=== PATIENT | male | born 1995 | race Caucasian/White ===

== ENCOUNTER 2017-12-03 21:45 | Emergency (ER) | payer BC ==
[~2017-12-03] VITALS: Ht 172.7 cm; Wt 78.2 kg
[~2017-12-03 21:45] MED LIST: AMOXICILLIN500 MG PO; AUGMENTIN875TAB PO; BENADRYL1 CRE EX; CIPROFLOXACN500 MG PO; DAYTIME COLD; FLU; HYDROXYZ HCL25 MG PO; MAALOX/BEN PO; NAFTIN2 % EX; NO; STROMECTOL3 MG OR; [UNRECOGNIZED DRUG - OTHER]; [UNRECOGNIZED DRUG - OTHER]
[2017-12-03 22:40] VITALS: BP 133/78
== END 2017-12-03 22:40 | disposition home or self-care (01) | DRG 605 ==
LOC: ED 21:45
PROC: 0HQDXZZ Repair Right Lower Arm Skin, External Approach (ICD-10-PCS; principal; 2017-12-03)
DX: S61.511A Laceration without foreign body of right wrist, initial encounter (principal); W54.8XXA Other contact with dog, initial encounter; Y93.89 Activity, other specified; Y92.009 Unspecified place in unspecified non-institutional (private) residence as the place of occurrence of the external cause

== ENCOUNTER 2019-02-02 19:37 | Emergency (ER) | payer BC ==
[~2019-02-02] VITALS: Ht 172.7 cm; Wt 74.0 kg
[2019-02-02] MEDS ORDERED: KEFLEX500 MG PO (20:15)
[2019-02-02] MEDS ORDERED: IBUPROFEN600 MG PO (20:15)
[2019-02-02 20:39] VITALS: BP 128/82
== END 2019-02-02 20:39 | disposition home or self-care (01) | DRG 603 ==
LOC: ED 19:37
DX: L03.115 Cellulitis of right lower limb (principal); F17.290 Nicotine dependence, other tobacco product, uncomplicated